=== PATIENT | female | born 1990 | race Caucasian/White ===

== ENCOUNTER → 2017-10-15 19:13 | Outpatient (CLI) | payer SELFPAY ==
[2017-10-15 21:22] LABS: Group B Strep DNA By PCR POSITIVE (Negative); Probe Check PASS
== END ==
PROVIDERS: Visit Provider Obstetrics & Gynecology
DX: Z36.85 Encounter for antenatal screening for Streptococcus B (principal)
CPT/HCPCS: 87653

== ENCOUNTER 2017-11-07 02:23 | Inpatient (IN) | payer SELFPAY ==
[2017-11-07 03:02] VITALS: BMI 40.1
[2017-11-07] MEDS: Lactated Ringers 1,000 ML 50 ML IV ×3 (03:05→10:49)
[2017-11-07 03:26] LABS: Hemoglobin 11.4 g/dl (12.0-15.0); Mean Corp Hgb Conc 31.7 g/gl (32-36); Mean Corpuscular Hgb 27.1 pg (27.0-32.0); Mean Corpuscular Volume 85.5 fL (81-99); Mean Platelet Vol. 10.5 fl (6.2-12.0); Platelet Count 187 K/mm3 (150-450); RBC Distribution Width CV 15.8 % (11.6-14.6); Red Blood Count 4.21 M/mm3 (4.2-5.4); White Blood Count 22.8 K/mm3 (4.4-11.0)
[2017-11-07 03:27] LABS: Scan Indicated on CBC? Y/N NO
[2017-11-07 03:42] LABS: AST(SGOT) 13 U/L (15-37); Alanine Aminotransfer ALT/SGPT 11 U/L (13-56); Creatinine, Serum 0.64 mg/dL (0.55-1.02); EST Glomerular Filtration Rate 116 mL/min (>60); Est Glom Filt Rate - Afr Amer 141 mL/min (>60); Estimated Creatinine Clearance 132.02 ml/min
[2017-11-07 04:55] LABS: International Normalized Ratio 1.1; Prothrombin Time (Protime)PT. 13.9 SECONDS (11.7-14.9)
[2017-11-07 04:56] LABS: Partial Thromboplast Time 27.4 Seconds (24.1-36.2)
[2017-11-07 07:56] LABS: Protein, Urine (Random) 20.6 mg/dL (<11.9); Protein:Creat Ratio 343 mg/g CRE (0-200)
[2017-11-07 08:10] LABS: ALB/GLOB Ratio 0.6 RATIO (0.9-2.4); AST(SGOT) 13 U/L (15-37); Alanine Aminotransfer ALT/SGPT 11 U/L (13-56); Albumin, Serum 2.6 g/dL (3.2-5.0); Alkaline Phosphatase 136 U/L (45-117); Anion Gap 13 (5-15); BUN 9 mg/dL (7-18); BUN/Creat Ratio 14.4 RATIO (10-20); Chloride 106 mmol/L (98-107); Creatinine, Serum 0.63 mg/dL (0.55-1.02); EST Glomerular Filtration Rate 120 mL/min (>60); Est Glom Filt Rate - Afr Amer 145 mL/min (>60); Estimated Creatinine Clearance 134.11 ml/min; Globulin 4.4 g/dL (2.2-4.2); Glucose 81 mg/dL (74-106); Potassium 3.7 mmol/L (3.5-5.1); Sodium Level 140 mmol/L (136-145); Uric Acid 4.3 mg/dL (2.6-6.0)
--- NOTE | 2017-11-07 08:10 | PCM.PN.BLA ---
Progress Note LABOR PROGRESS NOTE Melissa is comfortable with an epidural. No complaints. AVSS GEN - NAD, AAO x 3 FHR 130, moderate variability, + accelerations, no decelerations TOCO q2min SVE 8//-1 per my exam A/P: 27yo G1 @ 40wga in active labor, Cat I FHR -Amniotomy performed with clear fluid -Maternal and statuses reassuring
[2017-11-07] MEDS: Oxytocin 30 units/NS 500 ml 30 UNITS/500 ML IV.SOLN IV (08:59)
--- NOTE | 2017-11-07 11:39 | PCM.PN.OB ---
Subjective: Comfortable with epidural. Objective: Afeb VSS FHR tracing Cat 1 with episodes of heart rate decelerations with contractions to 90s on occasion. Overall reassuring pattern. - Physical Exam General: Alert, Oriented x3, Cooperative, No apparent distress Lungs: Clear to auscultation, Normal air movement Cardiovascular: Regular rate, Regular Rhythm Abdomen: Soft, Non Tender, Non-Distended, Gravid, Appropriate for Gestational Age Extremities: No edema Neurological: Neuro grossly intact Psych/Mental Status: Normal Affect Comment: CE FD +2 station Weight: 264 lb 3.2 oz Body Mass Index (BMI) 40.1 Laboratory Tests Past 24 Hrs 11/07/17 11/07/17 11/07/17 03:05 03:05 03:05 WBC 22.8 H RBC 4.21 Hgb 11.4 L Hct 36.0 L MCV 85.5 MCH 27.1 MCHC 31.7 L RDW 15.8 H RDW Differential 49.0 H Plt Count 187 MPV 10.5 PT INR APTT Sodium 140 Potassium 3.7 Chloride 106 Carbon Dioxide 21.0 Anion Gap 13 BUN 9 Creatinine 0.63 Estim Creat Clear Calc 134.11 Est GFR (MDRD) Af Amer 145 Est GFR (MDRD) Non-Af 120 BUN/Creatinine Ratio 14.4 Glucose 81 Uric Acid 4.3 Calcium 9.0 Total Bilirubin 0.20 AST 13 L ALT 11 L Alkaline Phosphatase 136 H Total Protein 7.0 Albumin 2.6 L Globulin 4.4 H Albumin/Globulin Ratio 0.6 L U Random Total Protein Urine Creatinine Protein/Creatinin Ratio Blood Type Cancelled A1 Antigen Typing Cancelled Rho(D) Type Cancelled Antibody Screen Cancelled 11/07/17 11/07/17 11/07/17 03:05 03:05 03:05 WBC RBC Hgb Hct MCV MCH MCHC RDW RDW Differential Plt Count MPV PT 13.9 INR 1.1 APTT 27.4 Sodium Potassium Chloride Carbon Dioxide Anion Gap BUN Creatinine 0.64 Estim Creat Clear Calc 132.02 Est GFR (MDRD) Af Amer 141 Est GFR (MDRD) Non-Af 116 BUN/Creatinine Ratio Glucose Uric Acid Calcium Total Bilirubin AST 13 L ALT 11 L Alkaline Phosphatase Total Protein Albumin Globulin Albumin/Globulin Ratio U Random Total Protein Urine Creatinine Protein/Creatinin Ratio Blood Type O NEGATIVE A1 Antigen Typing Rho(D) Type Antibody Screen NEGATIVE 11/07/17 07:30 WBC RBC Hgb Hct MCV MCH MCHC RDW RDW Differential Plt Count MPV PT INR APTT Sodium Potassium Chloride Carbon Dioxide Anion Gap BUN Creatinine Estim Creat Clear Calc Est GFR (MDRD) Af Amer Est GFR (MDRD) Non-Af BUN/Creatinine Ratio Glucose Uric Acid Calcium Total Bilirubin AST ALT Alkaline Phosphatase Total Protein Albumin Globulin Albumin/Globulin Ratio U Random Total Protein 20.6 H Urine Creatinine 60.10 Protein/Creatinin Ratio 343 H Blood Type A1 Antigen Typing Rho(D) Type Antibody Screen Assessment/Plan Now fully dilated. Will start pushing efforts.
[2017-11-07] MEDS: Oxytocin 30 units/NS 500 ml 30 UNITS/500 ML IV.SOLN 167 UNITS IV (12:17)
--- NOTE | 2017-11-07 12:29 | PCM.OB.VAG ---
Vaginal Delivery Maternal Presentation: Active Labor Presented at 6 cm dilated in active labor. 40 weeks EGA. Amniotic Membrane Rupture Type: Artificial Rupture of Membrane time: 0800 Amniotic Fluid Description: Clear Final DONTRELL: 11/07/17 Final DONTRELL Source: US <20 weeks Gestational age: 40 Weeks and 0 Days Date of Procedure: 11/07/17 Pre-Operative Diagnosis: Labor Post-Operative Diagnosis: same Surgery/ Procedure Performed: Spontaneous Vaginal Delivery Anesthesiologist: Sukhdev Landers Type of Anesthesia: Epidural Description of Procedure: Progressed to FD then pushed for less than one hour to deliver a live male without complication. There was a loose cord around the neck x 1. Delayed cord clamping was employed. There was an active cry shortly after delivery. The cord was clamped and cut and the baby was placed on mom's chest. Apgars were 8/9. The placenta was delivered spontaneously intact with a centrally located 3VC. The uterus contracted well. There were small bilateral periurethral tears (first degree) and a small posterior vaginal first degree tear. These were repaired with 3-0 and 2-0 vicryl suture. Presentation: Vertex Placental Delivery Description: Spontaneous Placenta Disposition: [facility] Percentage of Placenta Abruption: 0 Cord Vessel Description: 3 Vessels Nuchal Cord Compression: With compression Cord Entanglement: Around neck x 1, loose Drain: Chavarria to straight drain Estimated Blood Loss: 300cc A gender: Male (1 minute): 8 (5 minute): 9 Episiotomy Description: None Laceration: Midline, Periurethral Extnsion/lac, Vaginal Extension/lac, 1st degree Medications given after delivery: IV Pitocin Complications: None
--- NOTE | 2017-11-07 12:40 | DCINST_ITS ---
Discharge Activity: Return to Normal Activity Return to work on:: 01/07/18 May resume sexual activity in: 6 weeks Call your doctor if your incision/area has: Sudden Increased Bleeding, Increased Pain/ Swelling, Increased Redness, Foul Smelling Discharge Call your doctor if you observe: Fever of 101 or Higher, Inability to urinate, Inability to have a bowel movement, Using more than one pad per hour, Shortness of breath, Chest pain, Calf discomfort, Uncontrolled pain Cleanse incision/area with: Soap & Water Additional Instructions: If you experience any of the following, contact your healthcare provider. * Bleeding that soaks a pad every hour for 2 hours * Fever 100.4 or higher * Unrelieved incision or abdominal pain * Swelling, redness, discharge or bleeding from your incision or episiotomy site * Your incision begins to separate * Problems urinating (including inability to urinate or burning while urinating) . * Visual changes * Severe headache * Flu-like symptoms * Pain or redness in one of both of your breasts * Pain, warmth, tenderness or swelling in your legs, especially the calf area * Frequent nausea and vomiting * Symptoms of depression or anxiety If you experience any of the following, call 911 or go to the nearest Emergency Room. * Chest pain * Problems breathing * Seizure activity * Partial or complete paralysis of a body part, slurred speech, weakness or drooping of the face, or a sudden inability to walk or hold your balance Allergies/Adverse Reactions: Allergies No Known Allergies Allergy (Verified 11/07/17 03:00) Medications to take at Discharge Ergocalciferol [Vitamin D] 1 tab PO DAILY 11/07/17 Ibuprofen [Motrin] 800 mg PO TID PRN PRN #30 tab 11/07/17 Vit No.130/Iron/FA [ Tablet] 1 tab PO DAILY 11/07/17 The following prescriptions were given: Ibuprofen [Motrin] 800 mg PO TID PRN PRN #30 tab PRN Reason: pain or cramping Please Follow Up With: Shannon Castellanos MD When: 6 weeks Primary Care Physician: Care Physician,No Primary [Primary Care Provider] - Proposed Discharge Date: 11/09/17
[2017-11-07 16:27] VITALS: BP 128/77; PULSE 88; RESP 18; TEMP 37.2
[2017-11-07] MEDS: Ibuprofen 600 MG Tablet PO (18:50)
[2017-11-07 20:00] VITALS: BP 128/79; PULSE 82; RESP 18; TEMP 36.7
[2017-11-07 23:30] VITALS: BP 132/66; PULSE 88; RESP 16; TEMP 36.8
[2017-11-08 04:00] VITALS: BP 121/70; PULSE 86; RESP 16; TEMP 36.9
[2017-11-08] MEDS: Ibuprofen 600 MG Tablet PO ×2 (05:01→16:48)
[2017-11-08 06:32] LABS: Hematocrit 27.9 % (37-47); Hemoglobin 9.1 g/dl (12.0-15.0); Mean Corp Hgb Conc 32.6 g/gl (32-36); Mean Corpuscular Hgb 28.1 pg (27.0-32.0); Mean Corpuscular Volume 86.1 fL (81-99); Mean Platelet Vol. 10.5 fl (6.2-12.0); Platelet Count 157 K/mm3 (150-450); RBC Distribution Width CV 15.8 % (11.6-14.6); RBC Distribution Width SD 47.8 fl (35.1-43.9); Red Blood Count 3.24 M/mm3 (4.2-5.4); White Blood Count 15.6 K/mm3 (4.4-11.0)
[2017-11-08 06:34] LABS: Scan Indicated on CBC? Y/N NO
--- NOTE | 2017-11-08 07:28 | PCM.PN.OB ---
Subjective: Her perineum is sore. She is out bed, ambulating without difficulty. is going well, continues to work on latch with infantMerrick. Objective: AVSS - Physical Exam General: Alert, Oriented x3, Cooperative, No apparent distress HEENT: Atraumatic, Normocephalic Lungs: Clear to auscultation, Normal air movement Cardiovascular: Regular rate, No murmurs Abdomen: Soft, Non Tender, - - Fundus firm and nontender at umbilicus, lochia is scant Extremities: No Calf Tenderness, - - trace b/l LE edema Neurological: Neuro grossly intact Psych/Mental Status: Normal Affect, Appropriate, Alert and oriented to time, place, person, mood and affect Vital Signs Temp Pulse Resp BP 98.3 F 88 16 132/66 H 11/07/17 23:30 11/07/17 23:30 11/07/17 23:30 11/07/17 23:30 Oxygen Delivery Method Room Air Weight: 119.839 kg Body Mass Index (BMI) 40.1 Intake and Output for Last 24 Hours 11/06/17 11/07/17 11/08/17 23:59 23:59 23:59 Intake Total 3100 / 3100 Output Total 3400 / 3400 Balance -300 / -300 Laboratory Tests Past 24 Hrs 11/07/17 11/07/17 11/08/17 03:05 07:30 06:20 WBC 15.6 H RBC 3.24 L Hgb 9.1 L Hct 27.9 L MCV 86.1 MCH 28.1 MCHC 32.6 RDW 15.8 H RDW Differential 47.8 H Plt Count 157 MPV 10.5 Sodium 140 Potassium 3.7 Chloride 106 Carbon Dioxide 21.0 Anion Gap 13 BUN 9 Creatinine 0.63 Estim Creat Clear Calc 134.11 Est GFR (MDRD) Af Amer 145 Est GFR (MDRD) Non-Af 120 BUN/Creatinine Ratio 14.4 Glucose 81 Uric Acid 4.3 Calcium 9.0 Total Bilirubin 0.20 AST 13 L ALT 11 L Alkaline Phosphatase 136 H Total Protein 7.0 Albumin 2.6 L Globulin 4.4 H Albumin/Globulin Ratio 0.6 L U Random Total Protein 20.6 H Urine Creatinine 60.10 Protein/Creatinin Ratio 343 H Assessment/Plan 27yo PPD#1 s/p doing well. - -O NEG, also O neg - no Rhogam indicated -Rub immune -Routine care
--- NOTE | 2017-11-08 08:11 | PCM.PN.OB ---
Subjective: More comfortable this morning. Bleeding light. Bottle feeding. Objective: Afeb VSS Hgb appropriate on pod#1. - Physical Exam General: Alert, Oriented x3, Cooperative, No apparent distress Lungs: Clear to auscultation, Normal air movement Cardiovascular: Regular rate, Regular Rhythm Abdomen: Soft, Non Tender, Non-Distended, - - fundus firm incision dressing dry Extremities: No edema Skin: No rashes Neurological: Neuro grossly intact Vital Signs Temp Pulse Resp BP 98.4 F 86 16 121/70 H 11/08/17 04:00 11/08/17 04:00 11/08/17 04:00 11/08/17 04:00 Oxygen Delivery Method Room Air Weight: 264 lb 3.2 oz Body Mass Index (BMI) 40.1 Intake and Output for Last 24 Hours 03/13/18 //18 11/08/17 23:59 23:59 23:59 Intake Total 3100 / 3100 Output Total 3400 / 3400 Balance -300 / -300 Laboratory Tests Past 24 Hrs 11/08/ 06:20 WBC 15.6 H RBC 3.24 L Hgb 9.1 L Hct 27.9 L MCV 86.1 MCH 28.1 MCHC 32.6 RDW 15.8 H RDW Differential 47.8 H Plt Count 157 MPV 10.5 Assessment/Plan Doing well on POD#1. Continue routine PO care.
[2017-11-08 10:00] VITALS: BP 130/76; PULSE 91; RESP 16; TEMP 37; O2SAT 97
[2017-11-08] MEDS: Acetaminophen 500 MG Tablet 1000 MG PO (10:23)
[2017-11-08 14:00] VITALS: BP 120/67; PULSE 90; RESP 16; TEMP 36.7; O2SAT 96
[2017-11-08] MEDS: Prenatal Vits Tablet 1 TABLET PO (14:01)
[2017-11-08 18:00] VITALS: BP 122/76; PULSE 109; RESP 16; TEMP 36.9; O2SAT 98
[2017-11-08 20:00] VITALS: BP 123/71; PULSE 98; RESP 16; TEMP 36.8
[2017-11-09 02:00] VITALS: BP 122/78; PULSE 88; RESP 16; TEMP 36.6
[2017-11-09 08:30] VITALS: BP 124/73; PULSE 89; RESP 16; TEMP 37
--- NOTE | 2017-11-09 08:30 | PCM.PN.OB ---
Subjective: Infant clusterfed overnight. No complaints. Melissa is doing well. Objective: AVSS - Physical Exam General: Alert, Oriented x3, Cooperative, No apparent distress HEENT: Atraumatic, Normocephalic Neck: Supple, No JVD, Negative Carotid Bruits Lungs: Clear to auscultation, Normal air movement Cardiovascular: Regular rate, No murmurs Abdomen: Soft, Non Tender, Non-Distended, - - Fundus firm and nontender Extremities: No edema, No Calf Tenderness Neurological: Neuro grossly intact Psych/Mental Status: Normal Affect, Appropriate, Alert and oriented to time, place, person, mood and affect Vital Signs Temp Pulse Resp BP Pulse Ox 98 F 88 16 122/78 H 98 11/09/17 02:00 11/09/17 02:00 11/09/17 02:00 11/09/17 02:00 11/08/17 18:00 Oxygen Delivery Method Room Air Weight: 119.839 kg Body Mass Index (BMI) 40.1 Intake and Output for Last 24 Hours 11/07/17 11/08/17 11/09/17 23:59 23:59 23:59 Intake Total 3100 / 3100 Output Total 3400 / 3400 Balance -300 / -300 Assessment/Plan 27yo PPD#2 s/p doing well. - -O NEG, also O neg - no Rhogam indicated -Rub immune -Routine care
--- NOTE | 2017-11-09 09:18 | NURSING ---
discharge talk done pt verbalizes understanding; script for motrin given to pt; pt denies need for any further or maternal care teaching
--- NOTE | 2017-11-09 10:54 | NURSING ---
0950 dc to home; and maternal bracelet numbers match; placed in car seat per parents dc to home
== END 2017-11-09 09:50 | disposition home or self-care (01) | DRG 775 ==
PROVIDERS: Obstetrics & Gynecology; Admitting Provider Obstetrics & Gynecology; Visit Provider Obstetrics & Gynecology
DX: O99.824 Streptococcus B carrier state complicating childbirth (principal); O69.81X0 Labor and delivery complicated by cord around neck, without compression, not applicable or unspecified; O99.214 Obesity complicating childbirth; E66.01 Morbid (severe) obesity due to excess calories; Z68.41 Body mass index [BMI] 40.0-44.9, adult; O71.82 Other specified trauma to perineum and vulva; O70.0 First degree perineal laceration during delivery; O76 Abnormality in fetal heart rate and rhythm complicating labor and delivery; Z3A.40 40 weeks gestation of pregnancy; Z37.0 Single live birth
CPT/HCPCS: 59025; 59050; 80053; 82565; 82570; 84156; 84450; 84460; 84550; 85027; 85610; 85730; 86850; 86900; 86901; 99218; J7120; G0378

== ENCOUNTER → 2017-12-24 14:24 | Outpatient (CLI) | payer SELFPAY ==
[2017-12-27 14:14] LABS: HPV Reflexed? NOT INDICATED
== END ==
PROVIDERS: Visit Provider Obstetrics & Gynecology
DX: Z12.4 Encounter for screening for malignant neoplasm of cervix (principal)
CPT/HCPCS: 88175; G0145

== ENCOUNTER → 2019-03-06 | Outpatient (CLI) | payer SELFPAY ==
[2019-03-06 10:45] LABS: Hematocrit 37.6 % (37-47); Hemoglobin 12.2 g/dl (12.0-15.0); Mean Corp Hgb Conc 32.4 g/gl (32-36); Mean Corpuscular Hgb 28.8 pg (27.0-32.0); Mean Corpuscular Volume 88.9 fL (81-99); Mean Platelet Vol. 9.9 fl (6.2-12.0); Platelet Count 182 K/mm3 (150-450); RBC Distribution Width SD 41.8 fl (35.1-43.9); Red Blood Count 4.23 M/mm3 (4.2-5.4); White Blood Count 9.6 K/mm3 (4.4-11.0)
[2019-03-06 11:03] LABS: T4 Free Direct 0.81 ng/dL (0.76-1.46); Thyroid Stim Hormone (TSH) 3.03 uIU/mL (0.358-3.74)
[2019-03-06 15:06] LABS: Scan Indicated on CBC? Y/N NO
[2019-03-14 12:19] LABS: HPV Reflexed? YES, CHARGE PATIENT
== END | disposition home or self-care (01) ==
PROVIDERS: Visit Provider Obstetrics & Gynecology
DX: Z12.4 Encounter for screening for malignant neoplasm of cervix (principal); N92.1 Excessive and frequent menstruation with irregular cycle
CPT/HCPCS: 36415; 84439; 84443; 85027; 87624; 88175; G0145

== ENCOUNTER → 2019-03-24 11:30 | Outpatient (CLI) | payer SELFPAY ==
--- NOTE | 2019-03-24 11:30 | EMB_PTH ---
PATIENT: ALLEY NAVARRO LOC: [facility] U#:[id number] AGE/SX: 35/F ROOM: RE03/24/[address]: Dr. Shannon Mckinnon MD : 1990 BED: DIS: SPEC #: [id number] RECD: 03/24/19 16:02 STATUS: KRISTINA SINDHU #: [id number] GIOVANNI: 03/24/19 11:[address]: Shannon Craig DEPT: SURGICAL PATHOLOGY RECD BY: Jose Maria Sommer ENTERED: 03/25/19 11:03 SP TYPE: ENDOM BX/C HERI DR: No Primary Care Phys Tissues: Endometrium, NOS Procedures: Surgery Specimen Level IV HEADER OPERATION: EMBX PRE-OP DIAGNOSIS: Irregular menses TISSUE SUBMITTED: EMBX MICROSCOPIC DIAGNOSIS Endometrium, biopsy: Disordered proliferative endometrium with focal glandular breakdown. AM:bisi 03/26/19 MICROSCOPIC DESCRIPTION Slides are reviewed. GROSS DESCRIPTION Received is one container labeled with the patient name and designated Endometrial biopsy. The specimen consists of multiple irregular and elongated fragments of light galvin soft tissue that in aggregate measure 2.5 x 2.5 x 0.2 cm. The specimen is totally submitted in one cassette. /AM:sp 03/25/19 TC: 5 CPT: 87694
== END ==
PROVIDERS: Referring Provider Obstetrics & Gynecology; Visit Provider Obstetrics & Gynecology
DX: N92.6 Irregular menstruation, unspecified (principal)
CPT/HCPCS: 88305

== ENCOUNTER → 2019-04-17 09:36 | Outpatient (CLI) | payer SELFPAY ==
[2019-04-17 11:28] LABS: hCG Titer Quant., Serum < 1 mIU/mL (1-3)
[2019-04-17 11:30] LABS: Estradiol 23.1 pg/mL; Follicle Stimulating Hormone 7.7 mIU/mL; Glucose 85 mg/dL (74-106); Prolactin 5.1 ng/mL
[2019-04-18 13:38] LABS: DHEA Sulfate 78.8 ug/dL (84.8-378.0)
== END ==
PROVIDERS: Visit Provider Obstetrics & Gynecology
DX: N92.6 Irregular menstruation, unspecified (principal)
CPT/HCPCS: 36415; 82533; 82627; 82670; 82947; 83001; 83525; 84146; 84403; 84702; 82626

== ENCOUNTER → 2020-04-09 10:29 | Outpatient (CLI) | payer SELFPAY ==
[2020-04-09 13:54] LABS: Free T3 2.7 pg/mL (2.18-3.98); T4 Free Direct 0.88 ng/dL (0.76-1.46); Thyroid Stim Hormone (TSH) 2.93 uIU/mL (0.358-3.74)
[2020-04-09 14:08] LABS: T3 Total - Triiodothyronine 1.22 ng/mL (0.6-1.81)
== END ==
PROVIDERS: Visit Provider Obstetrics & Gynecology
DX: E03.9 Hypothyroidism, unspecified (principal)
CPT/HCPCS: 36415; 84439; 84443; 84480; 84481

== ENCOUNTER → 2021-04-13 11:03 | Outpatient (CLI) | payer SELFPAY ==
--- NOTE | 2021-04-13 10:30 | EMB_PTH ---
PATIENT: ALLEY NAVARRO LOC: [facility] U#:[id number] AGE/SX: 35/F ROOM: RE04/13/[address]: Dr. Shannon Mckinnon MD : 1990 BED: DIS: SPEC #: [id number] RECD: 04/13/21 13:29 STATUS: KRISTINA SINDHU #: [id number] GIOVANNI: 04/13/21 10:[address]: Shannon Craig DEPT: SURGICAL PATHOLOGY RECD BY: Evelia Rodriguez ENTERED: 04/13/21 13:29 SP TYPE: ENDOM BX/C HERI DR: No Primary Care Phys Tissues: Endometrium, NOS Procedures: Surgery Specimen Level IV HEADER OPERATION: Endometrial biopsy PRE-OP DIAGNOSIS: Menorrhagia, remote history complex endometrial hyperplasia TISSUE SUBMITTED: Endometrial biopsy MICROSCOPIC DIAGNOSIS Endometrial biopsy: Simple endometrial hyperplasia without atypia. See comment. MARILY:amie 04/14/2021 COMMENT Clinical correlation and appropriate follow up are necessary. Please make reference to previous specimens ([id number]) endometrium, curettings with diagnosis of ?secretory endometrium with areas of simple to complex hyperplasia without atypia? and ([id number]) endometrium, biopsy with diagnosis of ?disordered proliferative endometrium with focal glandular breakdown.? Case has been reviewed in consultation with Dr. Prakash who concurs with the above diagnosis. IDC:AM MICROSCOPIC DESCRIPTION Slides are reviewed. GROSS DESCRIPTION Received in fixative is one container labeled with the patient's name and designated endometrial biopsy. The specimen consists of multiple fragments of pink hemorrhagic soft tissue that in aggregate measure 3 x 2.5 x 0.3 cm. The specimen is totally submitted in one cassette. / MARILY:amie 04/13/21 TC:5 CPT: 96647
[2021-04-13 12:54] LABS: Hematocrit 33.9 % (37-47); Hemoglobin 10.6 g/dL (12.0-15.0); Mean Corp Hgb Conc 31.3 g/dL (32-36); Mean Corpuscular Volume 89.4 fL (81-99); Mean Platelet Vol. 9.7 fl (6.2-12.0); Platelet Count 251 K/mm3 (150-450); RBC Distribution Width SD 42.7 fl (35.1-43.9); Red Blood Count 3.79 M/mm3 (4.2-5.4); White Blood Count 10.2 K/mm3 (4.4-11.0)
[2021-04-13 13:13] LABS: Vitamin D,25 Hydroxy 35.3 ng/mL
[2021-04-13 13:28] LABS: AST(SGOT) 27 U/L (15-37); Alanine Aminotransfer ALT/SGPT 40 U/L (13-56); Albumin, Serum 3.9 g/dL (3.2-5.0); Alkaline Phosphatase 83 U/L (45-117); Bilirubin, Direct 0.11 mg/dL (0.00-0.30); Free T3 2.8 pg/mL (2.18-3.98); Globulin 4.1 g/dL (2.2-4.2); Glucose 81 mg/dL (74-106); Thyroid Stim Hormone (TSH) 3.11 uIU/mL (0.358-3.74)
[2021-04-13 16:51] LABS: Hemoglobin A1c 5.4 % (3.8-5.6)
== END ==
PROVIDERS: Visit Provider Obstetrics & Gynecology
DX: N92.0 Excessive and frequent menstruation with regular cycle (principal); E03.9 Hypothyroidism, unspecified; Z13.1 Encounter for screening for diabetes mellitus
CPT/HCPCS: 80076; 82306; 82947; 83036; 84439; 84443; 84481; 85027; 88305

== ENCOUNTER → 2021-05-24 10:09 | Outpatient (CLI) | payer SELFPAY ==
[2021-05-24 11:02] LABS: Free T3 2.7 pg/mL (2.18-3.98); T4 Free Direct 0.96 ng/dL (0.76-1.46)
== END ==
PROVIDERS: Visit Provider Obstetrics & Gynecology
DX: E03.9 Hypothyroidism, unspecified (principal)
CPT/HCPCS: 36415; 84439; 84443; 84481

== ENCOUNTER → 2021-07-27 | Outpatient (CLI) | payer SELFPAY ==
--- NOTE | 2021-07-27 10:45 | EMB_PTH ---
PATIENT: ALLEY NAVARRO LOC: [facility] U#:[id number] AGE/SX: 31/F ROOM: RE07/27/[address]: Dr. Shannon Mckinnon MD : 1990 BED: DIS: 07/27/2021 SPEC #: [id number] RECD: 07/27/21 12:58 STATUS: KRISTINA RENelsy #: [id number] GIOVANNI: 07/27/21 10:[address]: Shannon Craig DEPT: SURGICAL PATHOLOGY RECD BY: Evelia Rodriguez ENTERED: 07/27/21 13:11 SP TYPE: ENDOM BX/C HERI DR: No Primary Care Phys Tissues: Endometrium, NOS Procedures: Surgery Specimen Level IV HEADER OPERATION: Endometrial biopsy PRE-OP DIAGNOSIS: History of simple hyperplasia and atypia TISSUE SUBMITTED: Endometrial biopsy MICROSCOPIC DIAGNOSIS Endometrial biopsy: Weakly secretory endometrium. Negative for hyperplasia. See comment. SJ:amie 07/28/2021 COMMENT Focal changes suggestive of exogenous hormone effects are noted. Please make reference to previous specimen ([id number]) endometrial biopsy with diagnosis of ?simple endometrial hyperplasia without atypia.? MICROSCOPIC DESCRIPTION Slides are reviewed. GROSS DESCRIPTION Received in fixative is one container labeled with the patient's name and designated EM biopsy. The specimen consists of multiple fragments of pink hemorrhagic soft tissue that in aggregate measure 1.5 x 1 x 0.1 cm. The specimen is totally submitted in one cassette. / SJ:amie 07/27/21 TC:5 CPT: 97515
== END | disposition home or self-care (01) ==
LOC: LABSPEC 12:04
PROVIDERS: Visit Provider Obstetrics & Gynecology
DX: Z87.898 Personal history of other specified conditions (principal)
CPT/HCPCS: 88305

== ENCOUNTER 2021-10-18 12:11 | Outpatient (CLI) | payer SELFPAY ==
--- NOTE | 2021-10-18 10:30 | EMB_PTH ---
PATIENT: ALLEY NAVARRO LOC: [facility] U#:[id number] AGE/SX: 31/F ROOM: RE10/18/[address]: Dr. Shannon Mckinnon MD : 1990 BED: DIS: 10/18/2021 SPEC #: [id number] RECD: 10/18/21 12:25 STATUS: KRISTINA RENelsy #: [id number] GIOVANNI: 10/18/21 10:[address]: Shannon Craig DEPT: SURGICAL PATHOLOGY RECD BY: Evelia Rodriguez ENTERED: 10/18/21 12:47 SP TYPE: ENDOM BX/C HERI DR: No Primary Care Phys Tissues: Endometrium, NOS Procedures: Surgery Specimen Level IV HEADER OPERATION: Endometrial biopsy PRE-OP DIAGNOSIS: Endometrial hyperplasia TISSUE SUBMITTED: Endometrial biopsy MICROSCOPIC DIAGNOSIS Endometrium, biopsy: Disordered proliferative endometrium with focal glandular breakdown. AM:amie 10/19/2021 MICROSCOPIC DESCRIPTION Slides are reviewed. GROSS DESCRIPTION Received in fixative is one container labeled with the patient's name and designated endometrial biopsy. The specimen consists of multiple fragments of hemorrhagic soft tissue that in aggregate measure 2.5 x 1 x 0.1 cm. The specimen is totally submitted in one cassette. / SJ:amie 10/18/2021 TC:5 CPT: 51618
== END 2021-10-18 23:59 | disposition home or self-care (01) ==
LOC: LABSPEC 12:12
PROVIDERS: Visit Provider Obstetrics & Gynecology
DX: N85.01 Benign endometrial hyperplasia (principal)
CPT/HCPCS: 88305

== ENCOUNTER 2022-08-23 09:25 | Day surgery (SDC) | payer SELFPAY ==
[2022-08-16 17:02] LABS: Hematocrit 34.7 % (37-47); Mean Corp Hgb Conc 28.8 g/dL (32-36); Mean Corpuscular Hgb 21.7 pg (27.0-32.0); Mean Corpuscular Volume 75.4 fL (81-99); Mean Platelet Vol. 9.8 fl (6.2-12.0); POSITIVE MORPHOLOGY YES; Platelet Count 258 K/mm3 (150-450); RBC Distribution Width CV 24.3 % (11.6-14.6); RBC Distribution Width SD 64.6 fl (35.1-43.9); White Blood Count 12.3 K/mm3 (4.4-11.0)
[2022-08-16 17:10] LABS: International Normalized Ratio 1.1; Prothrombin Time (Protime)PT. 14.3 SECONDS (11.7-14.9)
[2022-08-16 17:11] LABS: Partial Thromboplast Time 28.6 Seconds (24.1-36.2)
[2022-08-16 17:30] LABS: Magnesium 1.9 mg/dL (1.6-2.6)
[2022-08-16 17:46] LABS: Scan Indicated on CBC? Y/N YES- FLAGS NOTED
[2022-08-16 17:50] LABS: Differential Comment SCANNED
[2022-08-23] VITALS (9 sets, daily range): BP systolic 114–137; BP diastolic 65–80; PULSE 63–89; RESP 14–18; TEMP 36.4–37.1; O2SAT 95–100; BMI 36.8
--- NOTE | 2022-08-23 04:24 | HP.PCM_ITS ---
HPI - General General Date of Admission: 08/23/22 Date of Service: 08/15/22 Chief Complaint: Preop for hysterectomy HPI Narrative ALLEY NAVARRO, is a 32 F scheduled for LAVH, bilateral salpingectomy for history of complex endometrial hyperplasia without atypia associated with anemia and abnormal uterine bleeding. [facility] Medical History (Updated 08/23/22 @ 04:[address] Shannon Mckinnon MD) Anemia Low iron Non-smoker Wears glasses Home Medications ferrous sulfate 325 mg (65 mg iron) tablet 325 mg PO DAILY 08/15/22 [History L ast Taken Unknown] Allergy/AdvReac Type Severity Reaction Status Date / Time No Known Allergies Allergy Verified 11/07/17 03:00 Family History (Updated 08/23/22 @ 04:[address] Shannon Mckinnon MD) Father High cholesterol Grandfather Heart disease PGF Surgical History History of D&C Social History Smoking Status: Former smoker Vital Signs Vital Signs Vital Signs: BP 110/80 HR 62 T 96.9F Weight 242lb BMI 36.79 Physical Exam Const alert, oriented x3 and no apparent distress HEENT normocephalic Resp normal respiratory effort, normal air movement and clear to auscultation bilaterally Effort and Inspection: able to speak in complete sentences Cardio regular rate and regular rhythm Neuro oriented x3, moves all extremities and gait normal Psych affect normal Results Lab / Micro Data Attestation: I reviewed the patient's lab results. Lab results narrative: 08/16/22: PT 14.3, NR 1.1, PTT 28.6, Mg 1.9 mg/dL 05/23/22: PAP normal, 03/06/19 PAP normal/NILM Result Diagrams: 08/16/22 16:26 Assessment & Plan Assessment/Plan (1) Endometrial hyperplasia without atypia, complex: PLAN: Plan Proceed with LAVH, BS with ovarian conservation for endometrial hyperplasia. Of fice consents signed.
[2022-08-23 10:10] LABS: Internal QC Validated? YES +Cl - CLEAR BKGD; Pregnancy, Urine Negative Negative
[2022-08-23] MEDS: Magnesium 1 GM over 15 mins IV (10:25)
[2022-08-23] MEDS: Lactated Ringers 1,000 ML 40 ML IV (10:29)
[2022-08-23] MEDS: Celecoxib 200 MG Capsule 400 MG PO (10:40)
[2022-08-23] MEDS: Acetaminophen 500 MG Tablet 1000 MG PO (10:40)
[2022-08-23] MEDS: Phenazopyridine 95 MG Tablet 190 MG PO (10:41)
[2022-08-23] MEDS: Gabapentin 600 MG Tablet PO (10:42)
[2022-08-23] MEDS: dexAMETHasone 10 MG/ML Vial 8 MG IV (10:42)
[2022-08-23 11:10] LABS: Bedside Glucose 92 mg/dL (74-106)
--- NOTE | 2022-08-23 11:30 | HYST_PTH ---
PATIENT: ALLEY NAVARRO LOC[place] [facility] [place][id number] AGE/SX: 32/F ROOM: RE08/23/[address]: Dr. Shannon Mckinnon MD : 1990 BED: DIS: 08/23/2022 SPEC #: [id number] RECD: 08/24/22 10:29 STATUS: KRISTINA MANLEY #: [id number] GIOVANNI: 08/23/22 11:[address]: Shannon Craig DEPT: SURGICAL PATHOLOGY RECD BY: Maisha Pride ENTERED: 08/24/22 10:53 SP TYPE: HYSTERECT OTHR DR: Dr. Lul Lucas MD No Primary Care Phys Tissues: Uterus, NOS Procedures: Surgery Specimen Level V HEADER OPERATION: Laparoscopic assisted vaginal hysterectomy, bilateral salpingectomy PRE-OP DIAGNOSIS: Complex endometrial hyperplasia TISSUE SUBMITTED: Uterus, cervix, bilateral fallopian tubes MICROSCOPIC DIAGNOSIS Uterus, cervix, bilateral fallopian tubes, hysterectomy and bilateral salpingectomy: Cervix ? chronic inflammation. Endometrium ? simple cystic endometrial hyperplasia without atypia. Myometrium ? focal superficial adenomyosis. Bilateral fallopian tubes - no pathologic diagnosis. SJ:amie 08/25/2022 COMMENT Please make reference to previous specimens ([id number]) endometrial biopsy with diagnosis of ?simple endometrial hyperplasia without atypia? and ([id number]) endometrial biopsy with diagnosis of ?weakly secretory endometrium and ([id number]) endometrial biopsy with diagnosis of ?disordered proliferative endometrium with focal glandular breakdown.? MICROSCOPIC DESCRIPTION Slides are reviewed. GROSS DESCRIPTION Received in fixative is one container labeled with the patient's name and designated uterus, cervix, bilateral fallopian tubes. The specimen consists of a hysterectomy specimen consisting of uterus with cervix and attached bilateral fallopian tubes. The uterus with cervix weighs 95 gm and measures 9 x 6 x 4.5 cm. The serosal surface is galvin, glistening. The ectocervical mucosa is unremarkable. The external os is oval in contour. The endocervical canal measures 3.5 cm in length and the endocervical mucosa is galvin, glistening and unremarkable. The triangular endometrial cavity measures 4.5 cm in length and 2.5 cm in width. The endometrium is hemorrhagic without any obvious mass lesion and measures up to 0.3 cm in thickness. Sections of the uterine wall do not reveal any mass lesion and measures up to 2 cm in thickness. The right fallopian tube measures 7.5 cm in length and up to 1 cm in diameter. The fimbrial end is identified. Sections reveal unremarkable cut surfaces. The left fallopian tube measures 7 cm in length and up to 1 cm in diameter and is similar appearance to right. [employer] sections are submitted in 11 cassettes as follows: 1 - anterior cervix, 2 - posterior cervix, 3-5 - anterior uterine wall, 69 - posterior uterine wall, 10 - right fallopian tube, 11 - left fallopian tube. The endometrium is submitted in entirety. / SJ:rg 08/24/2022 TC:5 CPT: 20585
[2022-08-23] MEDS: Cefazolin 2 GM in 0.9% Normal Saline 100 ML IV (13:51)
[2022-08-23] MEDS: Vasopressin 20 UNITS/ML Vial (14:00)
[2022-08-23] MEDS: Lubricating Jelly 60 GM Tube 30 GM (14:28)
[2022-08-23] MEDS: Enoxaparin 40 MG/0.4 ML Syringe SC (14:59)
--- NOTE | 2022-08-23 16:39 | DCINST_ITS ---
Discharge Instructions Diet Discharge Diet: No restrictions Activity Discharge Activity: Return to Normal Activity, May Drive (after 5-7 days if no longer taking Oxycodone), May Shower and - (No tub bath) May resume sexual activity in: 6-8 weeks Lifting Restrictions: 10 lb Dressing / Incision Call your doctor if your incision/area has: Continuous Slow Oozing, Sudden Increased Bleeding, Increased Pain/ Swelling, Increased Redness, Foul Smelling Discharge and Swelling at the incision site Call your doctor if you observe: Fever of 101 or Higher, Inability to urinate, Inability to have a bowel movement, Using more than 1 pad per hour, Shortness of breath, Chest pain, Increased palpitations (irregular heartbeat), Calf discomfort and Uncontrolled pain Remove Dressing in: 1 day Cleanse incision/area with: Soap & Water Follow Up Care Please Follow Up With: Shannon Craig MD When: 1-2 weeks for postop visit Test Results: Test results from this visit will be discussed in further detail at your follow- up appointment, if applicable. Discharge Plan Admission Primary Reason for Your Visit: Removal of uterus, cervix and tubes Attending Provider: Shannon Craig Primary Care Provider: Care Physician,No Primary Consulting Providers: Lul Lucas Instructions Patient Instructions: Laparoscopic Hysterect Recovery Discharge Orders/Prescriptions Prescriptions: New oxycodone 5 mg tablet 5 mg PO Q6H PRN (Reason: pain) 5 Days Qty: 20 0RF ibuprofen 600 mg tablet 600 mg PO Q8H PRN (Reason: pain) Qty: 30 0RF Continued ferrous sulfate 325 mg (65 mg iron) Tablet 325 mg PO DAILY Referrals / Follow Up: Care Physician,No Primary [Primary Care Provider] - Disposition Disposition (needs filled in before D/C Order can be placed): Home, Self Care
--- NOTE | 2022-08-23 16:41 | OP.PCM_ITS ---
Problems Associated Problem List Diagnoses (1) Endometrial hyperplasia without atypia, complex: Report of Operation Date of Procedure: 08/23/22 Pre-Operative Diagnosis: 1. 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 Abnormal uterine bleeding Post-Operative Diagnosis: 1. 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 Abnormal uterine bleeding 3. Left ovarian cyst Surgery/Procedure Performed:: 1. Laparoscopic assisted vaginal hysterectomy 2. Bilateral salpingectomy 3. Left ovarian cyst drainage Description of Surgical Findings:: Simple left ovarian cyst, normal ovaries otherwise. Normal appearing uterus and tubes. Surgeon: Shannon Craig guest house manager: Ngozi Rodriguez Type of Anesthesia: General and Local Anesthesiologist: Sukhdev Landers Specimen's removed: uterus, cervix, bilateral tubes Estimated Blood Loss (mL): 80 Fluids Replaced: 1900 ml Description of Procedure: Indications: 32-year-old 1 para 1 presents for scheduled LAVH and hilario ateral salpingectomy for history of complex endometrial hyperplasia without atypia. This was her third recurrence of endometrial hyperplasia despite prior medical management with resolution. She was counseled on various management options including hysterectomy for definitive management given risk for progression to cancer. She opted to proceed with hysterectomy. Procedure risks, benefits, indications and alternatives were reviewed and patient desired to proceed. Procedure: The patient was brought to the operating room and sinus performed. She is placed in the dorsal supine position and induced under general anesthesia and intubated. She was then repositioned to dorsal lithotomy, arms were tucked at the sides and examination under anesthesia was performed. The abdomen and perineum were prepped and draped in sterile fashion. A Caldwell catheter was placed into the bladder. Patient was placed into high lithotomy, dilute vasopressin was injected circumferentially in the cervix and Advincula uterine manipulator 3-1/2 cm was placed and secured to the uterus after sounding to 8 cm. The patient was placed into a low lithotomy attention turned to the abdomen. An inferior umbilical incision was made using scalpel and varies needle introduced with successful Millbrook-Tussin no aspirate. The abdomen was insufflated to 15 mmHg and the Veress needle was removed. A 5mm trocar was plac ed at the umbilicus under laparoscopic guidance confirming entry into the abdominal cavity. Bilateral TAP block was performed with 0.5% bupivacaine under laparoscopic guidance. Left, then right lower quadrant 5mm trocars were placed. The patient was placed into Trendelenberg and the abdomen surveyed, notable for left simple ovarian cyst. Otherwise, normal anatomy present. The left tube and fimbria was identified and salpinectomy performed with transection of the tube from the mesosalpinx to the level of the uterine cornua. The left utero-ovarian ligament was electrocoagulated and transected as was the left round ligament. The left anterior broad ligament was opened with blunt and sharp Ligasure dissection with creation of the left bladder flap and the left uterine vessels skeletonized. In similar fashion, right salpingectomy was performed and followed by electrocoagulation and transection of the right utero-ovarian ligament, then right round ligament. The right anterior broad ligament was opened, the bladder flap completed and right uterine vessels skeletonized. The bladder flap was further developed and the bilateral uterine arteries were electrocoagulated. At this time the abdomen was desufflated, laparoscope removed and attention turned to the perineum. Patient was placed into high lithotomy and the uterine manipulator was removed. A weighted speculum was placed vaginally and The cervix was grasped with the Arevalo tenaculum and a circumferential incision was made using the scalpel at the cervicovaginal junction. The posterior culdesac was identified and entered sharply and a Mandi Aarvard speculum placed into the posterior culdesac. With a curved Deever retractor placed anteriorly the vesicouterine membrane was developed, anterior culdesac peritoneum identified and entered sharply. The Deever was repositioned into the anterior culdesac. The uterosacral ligaments were Lori clamped, cut and transfixed with 0 Vicryl suture bilaterally. The cardinal ligaments were Lori clamped cut and transfixed to the uterosacral pedicles with 0 Vicryl suture. The uterus and cervix were delivered vaginally with bilateral tubes. The vaginal cuff was reapproximated using serial 0 Vicryl figure of eight sutures with incorporation of the uterosacral pedicles. There was excellent hemostasis. The abdomen was reinsufflated and laparoscopy again performed confirming continued hemostasis. The right ovarian cyst was punctured with a laparoscopic tenaculum and clear fluid drained. The procedure was complete. The abdomen was desufflated, laparoscopic removed. The caldwell catheter was removed and patient was placed dorsal supine, awakened, extubated and transferred to the recovery room without complication. Sponge, needle and instrument counts were correct x 2. Complications None Admit VTE Documentation VTE Present on Admission: No VTE Mechan Device Prophylaxis: SCD's VTE Pharm Prophylaxis ordered?: Yes Procedures Urinary/Genital [id number]: [id number] LAVH+BS/O <250gr Uterus (and ovarian cyst drainage)
[2022-08-23] MEDS: Ondansetron 4 MG/2 ML Vial IV (17:38)
== END 2022-08-23 19:39 | disposition home or self-care (01) ==
LOC: SDC 09:27 → AC 09:27
PROVIDERS: Anesthesiology; Referring Provider Obstetrics & Gynecology; Visit Provider Obstetrics & Gynecology
PROC: 0UT9FZZ Resection of Uterus, Via Natural or Artificial Opening With Percutaneous Endoscopic Assistance (ICD-10-PCS; CPT 58552; principal; 2022-08-23 11:05)
DX: N93.9 Abnormal uterine and vaginal bleeding, unspecified (principal); N83.202 Unspecified ovarian cyst, left side; Z87.891 Personal history of nicotine dependence; D64.9 Anemia, unspecified
CPT/HCPCS: 58552; 56405; 49322; 00840; 36415; 81025; 82962; 83735; 85027; 85610; 85730; 86850; 86900; 86901; 88307; J7120; J2405; J3475